=== PATIENT | female | born 1980 | race African-American/Black ===

== ENCOUNTER 2017-01-30 06:24 | Emergency (ER) | payer OTHER, MEDICAID ==
[~2017-01-30] VITALS: Ht 162.6 cm; Wt 72.5 kg
[2017-01-30 06:26] VITALS: BP 124/74; PULSE 73; RESP 16; TEMP 98.6; O2SAT 100
[2017-01-30] MEDS ORDERED: IBUPROFEN 600 MG TAB PO ONE (07:45)
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
== END 2017-01-30 08:34 | disposition home or self-care (01) ==
LOC: NEPE 06:24
DX: M25.512 Pain in left shoulder (principal); R07.89 Other chest pain; F17.210 Nicotine dependence, cigarettes, uncomplicated; V43.52XA Car driver injured in collision with other type car in traffic accident, initial encounter; Y92.410 Unspecified street and highway as the place of occurrence of the external cause; Y99.8 Other external cause status
CPT/HCPCS: 71101; 73030; 99284

== ENCOUNTER 2017-03-19 06:13 | Emergency (ER) | payer MEDICAID ==
[2017-03-19 06:19] VITALS: BP 119/68; PULSE 99; RESP 14; TEMP 98.4; O2SAT 100
--- NOTE | 2017-03-19 07:03 | PD ---
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 Said she thought she had yeast infection 1 week ago and was using monostat. Denies any fever, chest pain, sob, n/v, abdominal pain, focal weakness or numbness. Pt had hysterectomy for fibroids before. PFSH Past Medical History Medical History: Denies Significant Hx ?: Not Past Surgical History Hysterectomy: Yes Social History Alcohol Use: Yes (RARE) Tobacco Use: Yes (1/2 PPD) Substance Use: No Allergies-Medications (Allergen,Severity, Reaction): Coded Allergies: No Known Allergies (Unverified Adverse Reaction, Unknown, 03/19/17) Reported Meds & Prescriptions Reported Meds & Active Scripts Active No Active Prescriptions or Reported Medications Review of Systems Except as stated in HPI: all other systems reviewed are Neg Physical Exam Narrative GENERAL: 37yo F not in distress. SKIN: Focused skin assessment warm/dry. HEAD: Atraumatic. Normocephalic. EYES: Pupils equal and round. No scleral icterus. No injection or drainage. ENT: No nasal bleeding or discharge. Mucous membranes pink and moist. NECK: Trachea midline. No JVD. CARDIOVASCULAR: Regular rate and rhythm. No murmur appreciated. RESPIRATORY: No accessory muscle use. Clear to auscultation. Breath sounds equal bilaterally. GASTROINTESTINAL: Abdomen soft, non-tender, nondistended. PELVIC: Small amount of clear vaginal discharge. No blood. No adnexal mass or tenderness. MUSCULOSKELETAL: No obvious deformities. No clubbing. No cyanosis. No edema. NEUROLOGICAL: Awake and alert. No obvious cranial nerve deficits. Motor grossly within normal limits. Normal speech. PSYCHIATRIC: Appropriate mood and affect; insight and judgment normal. Data Data Last Documented VS Vital Signs Date Time Temp Pulse Resp B/P (MAP) Pulse Ox O2 Delivery O2 Flow Rate FiO2 03/19/17 06:19 98.4 99 14 119/68 (85) 100 Orders Orders Gc And Chlamydia Pcr (03/19/17 07:21) Wet Prep Profile (03/19/17 07:21) Metronidazole (Flagyl) (03/19/17 09:30) Labs Laboratory Tests Test 03/19/17 07:30 Clue Cells (Wet Prep) NONE SEEN Vaginal Trichomonas (Wet Prep) PRESENT Vaginal Yeast (Wet Prep) NONE SEEN MDM Medical Decision Making Medical Screen Exam Complete: Yes Emergency Medical Condition: Yes Differential Diagnosis Bacterial vaginosis vs. vaginal yeast vs. trichomoniasis Narrative Course 37yo F with vaginal itching today. +Vaginal discharge on exam. Wet prep showed vaginal trichomonas presents. Pt chose to take the 2gm metronidazole which was given. No other complaints. Return precautions given. Diagnosis Primary Impression: Vaginal trichomoniasis Patient Instructions: General Instructions Departure Forms: Tests/Procedures Additional Instructions: Please follow up with your [facility] in 3-7 days. Return to the ED if symptoms worsen. Med/Other Pt SpecificInfo: No Change to Meds Scripts No Active Prescriptions or Reported Meds Disposition: 01 DISCHARGE HOME Condition: Stable WinnSoraidaBecca DO Mar 19, 2017 07:03
[2017-03-19] MEDS ORDERED: metroNIDAZOLE 500 MG TAB PO ONE (09:30)
[2017-03-19 10:28] LABS: CHLAMYDIA PCR NOT DETECTED (NOT DETECT); NEISSERIA PCR NOT DETECTED (NOT DETECT)
== END 2017-03-19 09:30 | disposition home or self-care (01) ==
LOC: NEPC 06:13
DX: A59.01 Trichomonal vulvovaginitis (principal)
CPT/HCPCS: 87210; 87491; 87591; 99284